=== PATIENT | male | born 1970 | race Two or more races ===

== ENCOUNTER 2024-05-01 11:40 | Emergency (ER) | payer OTHER ==
[~2024-05-01] VITALS: Ht 177.8 cm; Wt 80.7 kg
[2024-05-01 13:36] VITALS: BP 106/72; O2SAT 95
[2024-05-01] MEDS ORDERED: AMOX-CLAV 875-1 EACH PO (14:14)
[2024-05-01] MEDS ORDERED: TUSNEL LIQUID178 ML PO (14:14)
[2024-05-01] MEDS ORDERED: TRIAMCINOLONE ACETONIDE 40 MG/ML VIAL IM ONE (14:15)
== END 2024-05-01 14:34 | disposition home or self-care (01) ==
LOC: ER 11:42
DX: J01.90 Acute sinusitis, unspecified (principal); B96.89 Other specified bacterial agents as the cause of diseases classified elsewhere